=== PATIENT | male | born 1965 | race African-American/Black ===

== ENCOUNTER 2021-01-07 02:04 | Emergency (ER) | payer SELFPAY ==
[~2021-01-07] VITALS: Ht 172.7 cm; Wt 55.0 kg
[2021-01-07] MEDS ORDERED: ONDANSETRON HCL 4MG/2ML INJ IV STA (02:39)
[2021-01-07] MEDS ORDERED: MORPHINE SULFATE 4 MG/ML CPJ (NOT FOR IM USE) IV STA (02:39)
[2021-01-07] MEDS ORDERED: SODIUM CHLORIDE 0.9% 1,000 ML IV ONE (02:45)
[2021-01-07 04:07] LABS: CHLORIDE 109 mEq/L (98-107)
[2021-01-07 04:52] LABS: HEMATOCRIT. 21.8 % (42.0-52.0); MEAN CORPUSCULAR HEMOGLOBIN 37.3 pg (28.0-32.0); MEAN CORPUSCULAR VOLUME 101.8 fL (80.0-94.0); MEAN PLATELET VOLUME 9.5 fl (7.4-10.4); PLATELET 78 x1000/uL (130-400); RED BLOOD CELL COUNT 2.14 mill/uL (4.7-6.1); RED CELL DISTRIBUTION WIDTH 24.3 % (11.6-14.6)
[2021-01-07] MEDS ORDERED: IBUP-2029 MT (06:14)
[2021-01-07] MEDS ORDERED: IOHEXOL-300 100 ML BOTTLE ONE (06:27)
[2021-01-07 07:59] LABS: NUCLEATED RED BLOOD CELLS 1 /100 WBC
[2021-01-08 09:15] VITALS: BP 120/72
== END 2021-01-08 09:26 | disposition home or self-care (01) ==
LOC: ER 02:04
DX: S39.81XA Other specified injuries of abdomen, initial encounter (principal); F17.290 Nicotine dependence, other tobacco product, uncomplicated; W50.1XXA Accidental kick by another person, initial encounter; Y93.89 Activity, other specified; Y92.89 Other specified places as the place of occurrence of the external cause; Y99.8 Other external cause status
CPT/HCPCS: 36415; 71045; 74177; 80053; 83605; 83690; 85025; 96361; 96374; 96375; 99285; J2270; J2405; J7030; J7040; Q9967

== ENCOUNTER 2021-01-08 11:17 | Emergency (ER) | payer MEDICAID ==
[~2021-01-08] VITALS: Ht 165.1 cm; Wt 78.0 kg
[~2021-01-08 11:17] MED LIST: IBUP-2029 MT
[2021-01-08 14:04] VITALS: BP 126/70
== END 2021-01-08 15:00 | disposition home or self-care (01) ==
LOC: ER 11:17
DX: R45.851 Suicidal ideations (principal); Z59.0 Homelessness
CPT/HCPCS: 99283; Z7610